=== PATIENT | male | born 1980 ===

== ENCOUNTER 2018-10-31 13:28 | Emergency (ER) | payer OTHER ==
[~2018-10-31] VITALS: Ht 185.4 cm; Wt 85.3 kg
== END 2018-10-31 16:17 | disposition home or self-care (01) ==
LOC: ER 13:28
DX: S89.81XA Other specified injuries of right lower leg, initial encounter (principal); W18.39XA Other fall on same level, initial encounter; Y93.89 Activity, other specified; Y92.098 Other place in other non-institutional residence as the place of occurrence of the external cause; Y99.8 Other external cause status

== ENCOUNTER 2019-08-22 12:35 | Emergency (ER) | payer OTHER ==
[~2019-08-22] VITALS: Ht 185.4 cm; Wt 83.5 kg
== END 2019-08-22 15:13 | disposition home or self-care (01) ==
LOC: ER 12:35
DX: R51 Headache (principal)

== ENCOUNTER 2021-05-28 17:43 | Emergency (ER) | payer OTHER ==
[~2021-05-28] VITALS: Ht 185.4 cm; Wt 79.4 kg
== END 2021-05-28 20:59 | disposition home or self-care (01) ==
LOC: ER 17:43
DX: N48.21 Abscess of corpus cavernosum and penis (principal); A63.8 Other specified predominantly sexually transmitted diseases